=== PATIENT | female | born 1960 | race Caucasian/White ===

== ENCOUNTER 2016-11-05 14:53 | Emergency (ER) | payer BC ==
[2016-11-05 14:58] VITALS: TEMP 97.5
[2016-11-05] MEDS ORDERED: ORPHENADRINE 30 MG/ML 2 ML VIAL IVP STA (15:25)
--- NOTE | 2016-11-05 15:29 | ED ---
General Adult HPI - General Chief complaint: Arrhythmia/Palpitations Stated complaint: heart palpitations/stabbing back pain Time Seen by Provider: 11/05/16 15:19 Source: patient, RN notes reviewed Mode of arrival: ambulatory Limitations: no limitations - History of Present Illness Initial comments: Patient is a pleasant 56-year-old female presenting to the emergency department with sharp left back discomfort and palpitations. Patient states left back discomfort has been persistent since yesterday. Patient states it is sharp and increases with deep breaths. Patient rates the discomfort is 4/10. Patient questions if she slept wrong. Patient also has had some intermittent fluttering since yesterday. No symptoms at this time. No chest pain. No dyspnea. No leg pain or leg swelling. - Related Data Home Medications Medication Instructions Recorded Confirmed Fluticasone Propionate [Flovent 2 puff INHALATION RT-BID PRN 11/05/16 11/05/16 Hfa 110mcg] Ipratropium/Albuterol Sulfate 2 puff INHALATION RT-BID 11/05/16 11/05/16 [Combivent Respimat Inhaler] Multivitamins, Thera [Multivitamin 1 tab PO DAILY 11/05/16 11/05/16 (formulary)] metFORMIN HCL [Glucophage] 500 mg PO BID 11/05/16 11/05/16 Allergies Allergy/AdvReac Type Severity Reaction Status Date / Time amoxicillin Allergy Rash/Hives Verified 11/05/16 15:56 Review of Systems ROS Statement: Those systems with pertinent positive or pertinent negative responses have been documented in the HPI. ROS Other: All systems not noted in ROS Statement are negative. Constitutional: Denies: fever Eyes: Denies: eye pain ENT: Denies: ear pain Respiratory: Denies: cough Cardiovascular: Reports: palpitations. Denies: chest pain Endocrine: Denies: fatigue Gastrointestinal: Denies: abdominal pain Genitourinary: Denies: urgency Musculoskeletal: Reports: back pain Skin: Denies: rash Neurological: Denies: weakness Past Medical History Past Medical History: Diabetes Mellitus History of Any Multi-Drug Resistant Organisms: None Reported Past Surgical History: Section Past Psychological History: No Psychological Hx Reported Smoking Status: Never smoker Past Alcohol Use History: None Reported Past Drug Use History: None Reported General Exam Limitations: no limitations General appearance: alert, in no apparent distress Head exam: Present: atraumatic Eye exam: Present: normal appearance, PERRL ENT exam: Present: normal oropharynx Neck exam: Present: normal inspection Respiratory exam: Present: normal lung sounds bilaterally. Absent: chest wall tenderness Cardiovascular Exam: Present: regular rate, normal rhythm Expanded Peripheral pulses: 2+: Radial (R), Radial (L), Posterior Tibialis (R), Posterior Tibialis (L) GI/Abdominal exam: Present: soft. Absent: tenderness Extremities exam: Present: normal inspection. Absent: pedal edema, calf tenderness Back exam: Present: tenderness (LEft parathoracic muscle fullness and tenderness T7 through T9.) Neurological exam: Present: alert Psychiatric exam: Present: normal affect, normal mood Skin exam: Present: normal color Course Vital Signs 11/05/16 14:55 Temperature 97.5 F L Pulse Rate 105 H Respiratory 18 Rate Blood Pressure 143/81 O2 Sat by Pulse 96 Oximetry - Reevaluation(s) Reevaluation #1: 11/05/16 15:27 Patient does have occasional PVCs on the monitor that does correlate with patient's symptoms. EKG Findings - EKG Comments: EKG Findings:: Normal sinus rhythm 99. TX 140. QRS 94. QT 334. QTC 428. Normal axis. Normal QRS. Normal ST-T. Medical Decision Making - Medical Decision Making Patient reevaluated and resting comfortably in bed. Patient updated on results and need for follow-up. Patient still refuses medication and prescription. - Lab Data Result diagrams: 11/05/16 15:10 11/05/16 15:10 Lab Results 11/05/16 11/05/16 11/05/16 Range/Units 15:10 15:10 15:10 WBC 8.0 (3.8-10.6) k/uL RBC 5.24 (3.80-5.40) m/uL Hgb 14.1 (11.4-16.0) gm/dL Hct 42.3 (34.0-46.0) % MCV 80.8 (80.0-100.0) fL MCH 26.9 (25.0-35.0) pg MCHC 33.2 (31.0-37.0) g/dL RDW 13.7 (11.5-15.5) % Plt Count 264 (150-450) k/uL Neutrophils % 75 % Lymphocytes % 15 % Monocytes % 4 % Eosinophils % 3 % Basophils % 1 % Neutrophils # 6.0 (1.3-7.7) k/uL Lymphocytes # 1.2 (1.0-4.8) k/uL Monocytes # 0.3 (0-1.0) k/uL Eosinophils # 0.2 (0-0.7) k/uL Basophils # 0.1 (0-0.2) k/uL PT (9.0-12.0) sec INR (<1.2) APTT (22.0-30.0) sec D-Dimer (<0.60) mg/L FEU Sodium 140 (137-145) mmol/L Potassium 4.7 (3.5-5.1) mmol/L Chloride 106 (98-107) mmol/L Carbon Dioxide 24 (22-30) mmol/L Anion Gap 10 mmol/L BUN 13 (7-17) mg/dL Creatinine 0.60 (0.52-1.04) mg/dL Est GFR (MDRD) Af Amer >60 (>60 ml/min/1.73 sqM) Est GFR (MDRD) Non-Af >60 (>60 ml/min/1.73 sqM) Glucose 110 H (74-99) mg/dL Calcium 10.1 (8.4-10.2) mg/dL Magnesium 1.8 (1.6-2.3) mg/dL Total Bilirubin 0.7 (0.2-1.3) mg/dL AST 30 (14-36) U/L ALT 50 (9-52) U/L Alkaline Phosphatase 82 (38-126) U/L Total Creatine Kinase 83 (30-135) U/L CK-MB (CK-2) 1.0 (0.0-2.4) ng/mL CK-MB (CK-2) Rel Index 1.2 Troponin I <0.012 (0.000-0.034) ng/mL Total Protein 7.5 (6.3-8.2) g/dL Albumin 4.5 (3.5-5.0) g/dL TSH 1.740 (0.465-4.680) mIU/L Free T4 1.26 (0.78-2.19) ng/dL Free T3 pg/mL 3.7 (2.8-5.3) pg/ml 11/05/16 11/05/16 Range/Units 15:10 15:10 WBC (3.8-10.6) k/uL RBC (3.80-5.40) m/uL Hgb (11.4-16.0) gm/dL Hct (34.0-46.0) % MCV (80.0-100.0) fL MCH (25.0-35.0) pg MCHC (31.0-37.0) g/dL RDW (11.5-15.5) % Plt Count (150-450) k/uL Neutrophils % % Lymphocytes % % Monocytes % % Eosinophils % % Basophils % % Neutrophils # (1.3-7.7) k/uL Lymphocytes # (1.0-4.8) k/uL Monocytes # (0-1.0) k/uL Eosinophils # (0-0.7) k/uL Basophils # (0-0.2) k/uL PT 10.5 (9.0-12.0) sec INR 1.0 (<1.2) APTT 26.1 (22.0-30.0) sec D-Dimer 0.33 (<0.60) mg/L FEU Sodium (137-145) mmol/L Potassium (3.5-5.1) mmol/L Chloride (98-107) mmol/L Carbon Dioxide (22-30) mmol/L Anion Gap mmol/L BUN (7-17) mg/dL Creatinine (0.52-1.04) mg/dL Est GFR (MDRD) Af Amer (>60 ml/min/1.73 sqM) Est GFR (MDRD) Non-Af (>60 ml/min/1.73 sqM) Glucose (74-99) mg/dL Calcium (8.4-10.2) mg/dL Magnesium (1.6-2.3) mg/dL Total Bilirubin (0.2-1.3) mg/dL AST (14-36) U/L ALT (9-52) U/L Alkaline Phosphatase (38-126) U/L Total Creatine Kinase (30-135) U/L CK-MB (CK-2) (0.0-2.4) ng/mL CK-MB (CK-2) Rel Index Troponin I (0.000-0.034) ng/mL Total Protein (6.3-8.2) g/dL Albumin (3.5-5.0) g/dL TSH (0.465-4.680) mIU/L Free T4 (0.78-2.19) ng/dL Free T3 pg/mL (2.8-5.3) pg/ml - Radiology Data Radiology results: image reviewed (Chest x-ray shows no acute process) Disposition Clinical Impression: Palpitations, Thoracic back pain Disposition: HOME SELF-CARE Condition: Stable Instructions: Palpitations (ED), Thoracic Pain (ED) Additional Instructions: Please follow-up with primary care physician in the next day or 2 for recheck. Return for difficulty in breathing, chest pain, increased heart rate, worsening symptoms or other concerns. [id number]-lchrhas Tylenol or Motrin if needed for back discomfort. Referrals: Mychal Geronimo DO [Primary Care Provider] - 1-2 days Time of Disposition: 16:30
[2016-11-05 15:37] LABS: Basophils # (A) 0.1 k/uL (0-0.2); Basophils % (A) 1 %; CH 26.2; CHCM 32.6; Eosinophils # (A) 0.2 k/uL (0-0.7); Eosinophils % (A) 3 %; HCT 42.3 % (34.0-46.0); HDW 2.68; HGB 14.1 gm/dL (11.4-16.0); Luc # (Auto) 0.19; Luc % (Auto) 2; Lymphocytes # (A) 1.2 k/uL (1.0-4.8); Lymphocytes % (A) 15 %; MCH 26.9 pg (25.0-35.0); MCHC 33.2 g/dL (31.0-37.0); MCV 80.8 fL (80.0-100.0); Mean Platelet Volume 7.9; Monocytes # (A) 0.3 k/uL (0-1.0); Monocytes % (A) 4 %; Neutrophils % (A) 75 %; RBC 5.24 m/uL (3.80-5.40); RDW 13.7 % (11.5-15.5); WBC (Perox) 7.81
--- NOTE | 2016-11-05 15:43 | XR ---
EXAMINATION TYPE: XR chest 2V DATE OF EXAM: 11/05/2016 COMPARISON: NONE TECHNIQUE: PA and lateral views submitted. HISTORY: Chest pain FINDINGS: The lungs are clear and there is no pneumothorax, pleural effusion, or focal pneumonia. Postsurgica l change involving the upper quadrant noted. No overt failure. Degenerative change of the spine noted . IMPRESSION: 1. No acute process.
[2016-11-05 15:48] LABS: ALT 50 U/L (9-52); AST 30 U/L (14-36); Alkaline Phosphatase 82 U/L (38-126); Anion Gap 10 mmol/L; Blood Urea Nitrogen 13 mg/dL (7-17); Calcium 10.1 mg/dL (8.4-10.2); Carbon Dioxide 24 mmol/L (22-30); Chloride 106 mmol/L (98-107); Glucose 110 mg/dL (74-99); Magnesium 1.8 mg/dL (1.6-2.3); Non-African American GFR(MDRD) >60 (>60 ml/min/1.73 sqM); Potassium 4.7 mmol/L (3.5-5.1); Sodium 140 mmol/L (137-145); Total Bilirubin 0.7 mg/dL (0.2-1.3); Total Protein 7.5 g/dL (6.3-8.2)
[2016-11-05 15:51] LABS: Partial Thromboplastin Time 26.1 sec (22.0-30.0); Prothrombin Time 10.5 sec (9.0-12.0)
[2016-11-05 15:59] LABS: Creatine Kinase 83 U/L (30-135)
[2016-11-05 16:11] LABS: Troponin I <0.012 ng/mL (0.000-0.034)
[2016-11-05 16:32] VITALS: BP 135/68; PULSE 96; RESP 16
== END 2016-11-05 16:39 | disposition home or self-care (01) ==
LOC: EC 14:53
DX: M54.6 Pain in thoracic spine (principal); R00.2 Palpitations; E11.9 Type 2 diabetes mellitus without complications; Z79.84 Long term (current) use of oral hypoglycemic drugs; Z79.899 Other long term (current) drug therapy; Z88.0 Allergy status to penicillin; Z53.20 Procedure and treatment not carried out because of patient's decision for unspecified reasons
CPT/HCPCS: 36415; 71020; 80053; 82550; 82553; 83735; 84439; 84443; 84481; 84484; 85025; 85379; 85610; 85730; 93005; 99285

== ENCOUNTER → 2017-09-24 | Outpatient (CLI) | payer BC ==
[2017-09-24 12:47] LABS: Appearance,Urine Clear (Clear); Bilirubin,Urine Negative (Negative); Blood,Urine Negative (Negative); Color,Urine Yellow; Glucose,Urine (UA) Negative (Negative); Ketones,Urine Negative (Negative); Leukocyte Esterase,Urine Small (Negative); Mucus,Urine Rare /hpf; Nitrite,Urine Negative (Negative); Protein,Urine Negative (Negative); RBC,Urine <1 /hpf (0-5); Specific Gravity,Urine 1.008 (1.001-1.035); Squamous Epithelial Cell,Urine <1 /hpf (0-4); Urobilinogen,Urine <2.0 mg/dL (<2.0); WBC,Urine 3 /hpf (0-5)
[2017-09-24 12:54] LABS: HCT 40.6 % (34.0-46.0); HGB 13.3 gm/dL (11.4-16.0); MCH 25.9 pg (25.0-35.0); MCHC 32.7 g/dL (31.0-37.0); MCV 79.2 fL (80.0-100.0); Mean Platelet Volume 7.9; Platelet Count 244 k/uL (150-450); RBC 5.12 m/uL (3.80-5.40); RDW 13.7 % (11.5-15.5); WBC 6.5 k/uL (3.8-10.6)
[2017-09-24 13:04] LABS: Partial Thromboplastin Time 25.1 sec (22.0-30.0); Prothrombin Time 9.8 sec (9.0-12.0)
[2017-09-24 13:09] LABS: ALT 41 U/L (9-52); AST 28 U/L (14-36); Albumin 4.3 g/dL (3.5-5.0); Alkaline Phosphatase 72 U/L (38-126); Anion Gap 7 mmol/L; Blood Urea Nitrogen 13 mg/dL (7-17); Calcium 9.6 mg/dL (8.4-10.2); Carbon Dioxide 30 mmol/L (22-30); Chloride 104 mmol/L (98-107); Glucose 111 mg/dL (74-99); Potassium 4.6 mmol/L (3.5-5.1); Sodium 141 mmol/L (137-145); Total Bilirubin 0.6 mg/dL (0.2-1.3); Total Protein 7.2 g/dL (6.3-8.2)
== END | disposition home or self-care (01) ==
LOC: LABPAT 11:49
PROVIDERS: ATTEND Orthopaedic Surgery
DX: Z01.812 Encounter for preprocedural laboratory examination (principal)
CPT/HCPCS: 36415; 80053; 81001; 85027; 85610; 85730; 86850; 86900; 86901; 87070

== ENCOUNTER 2017-10-05 09:07 | Inpatient (IN) | payer BC ==
[2017-09-28 12:08] VITALS: BMI 34.7
[~2017-10-05 09:07] MED LIST: ACETAMINOPHEN TAB 500 MG TAB PO ONE; DEXAMETHASONE SOD PHOSPHATE 10 MG/ML 1 ML VIAL IV ONE; LIDOCAINE 1% 20 ML VIAL (10MG/ML) FOR IV START INTRADERMA PRN; MELOXICAM 7.5 MG TAB PO ONE; MIDAZOLAM 2 MG/2 ML VIAL IV PRN; ONDANSETRON 4 MG/2 ML VIAL IVP ONE; ROPIVACAINE 246.25 MG, EPINEPHrine 0.5 MG, KETOROLAC 30 MG, cloNIDine HCL/PF 80 MCG, WA... MISCELLANE ONE; TRANEXAMIC ACID 1,000 MG in SODIUM CHLORIDE 0.9% 50 ML IVPB ONE; ceFAZolin IN SWFI 2 GM/20 ML SYRINGE IVP ONE
[2017-10-05] MEDS ORDERED: hydrOXYzine PAMOATE 25 MG CAP PO PRN (11:56)
[2017-10-05] MEDS ORDERED: HYDROmorphone 1 MG/ML 1 ML SYRINGE IVP PRN ×3 (11:56)
[2017-10-05] MEDS ORDERED: MAGNESIUM HYDROXIDE 2,400 MG/10 ML CUP PO PRN (11:56)
[2017-10-05] MEDS ORDERED: NALOXONE 0.4 MG/ML 1 ML VIAL IV PRN (11:56)
[2017-10-05] MEDS ORDERED: DIAZEPAM 5 MG TAB PO PRN ×2 (11:56)
[2017-10-05] MEDS ORDERED: HYDROcodone/APAP 5-325MG 1 EACH TAB PO PRN (11:56)
[2017-10-05] MEDS ORDERED: LACTATED RINGERS 1,000 ML IV ONE ×2 (12:00→13:30)
[2017-10-05] MEDS: ONDANSETRON 4 MG/2 ML VIAL IVP PRN ×2 (12:06→16:06)
[2017-10-05 12:17] LABS: Glucose,Whole Blood 126 mg/dL (75-99)
[2017-10-05] MEDS ORDERED: CLINDAMYCIN 1,800 MG in SODIUM CHLORIDE 0.9% IRRIGATIO 3,000 ML IRRIGATION ONE (12:58)
--- NOTE | 2017-10-05 13:52 | P.OP ---
Date of Procedure: 10/05/17 Preoperative Diagnosis: Severe osteoarthritis left hip Postoperative Diagnosis: Severe Osteoarthritis the left hip Procedure(s) Performed: Left total hip arthroplasty with a direct anterior approach Implants: Foley and nephew Polarstem size 3 standard Foley & Nephew R3, 3 hole acetabular shell, 48 mm Foley & Nephew reflection 6.5 mm cancellus screw, 20 mm 2 Foley & Nephew R3, XLPE 20 acetabular liner Foley & Nephew Oxinium femoral head 32 m, +0 All components were press-fit. The articulation is Oxinium on polyethylene. Anesthesia: GETA, spinal Surgeon: Royce Mar Traffic I Manager #1: Maricruz Richards Estimated Blood Loss (ml): 350 (125 mL returned with Cell Saver) Pathology: other (Femoral head) Condition: stable Disposition: PACU Indications for Procedure: After failure of conservative treatment we discussed the surgical and nonsurgical treatment options at length. Patient wishes to proceed with a total hip arthroplasty with a direct anterior approach. Complications specific to this procedure were discussed at length, including but not limited to infection, leg length discrepancy, dislocation, and nerve injury. Patient is aware of all these complications and informed consent was obtained Operative Findings: The operative findings are consistent with severe osteoarthritis of the left hip Description of Procedure: Patient was seen and evaluated in the preoperative area, consent was reviewed, and the surgical site was marked with a skin marker. Patient was then brought to the operating room and given prophylactic antibiotics intravenously. 1 g of Tranexamic acid was also given. A spinal anesthetic was administered by the anesthesia department. The patient was then placed on the [place] table with the bony prominences well-padded. The hip area was then prepped and draped in usual sterile fashion. The spinal did not seem to provide adequate regional anesthesia, so a general anesthetic was given. A universal timeout was then performed, which confirmed the patient's name, surgical site, ALLERGIES, and procedure being performed. Next the incision site was located at 1 cm distal and 1 cm lateral to the anterior superior iliac spine. The skin and subcutaneous tissues were sharply incised. Incision was carefully dissected down to the fascia overlying the tensor fascia kurtis muscle. This fascia was then incised in line with the incision. Next, using blunt finger dissection, the tensor fascia kurtis muscle was dissected off its investing fascia. The muscle was then carefully retracted laterally with a cobra retractor over the lateral neck of the femur. Next, the circumflex vessels were identified and cauterized using the AquaMantis device. The anterior hip capsule was then exposed. The capsule was then opened and an inverted T fashion. Cobra retractors were then placed intracapsularly. The proximal femur was then visualized. The femoral neck was then osteotomized appropriate level above the lesser trochanter. Small amount of traction was placed with the [place] table. A small wedge of bone was then removed from the remaining femoral head. Next, using a corkscrew femoral head was easily removed from the acetabulum. On gross visual inspection, the femoral head had complete loss of articular cartilage in multiple periarticular osteophytes. Attention was then turned to the acetabulum. the acetabulum was exposed and any remaining labrum was excised. Sequential reaming of the acetabulum was performed using fluoroscopic guidance. When the appropriate size was reached, a trial was then placed. The position and fit of the trial was checked with fluoroscopy. The trial was then removed. Then, using fluoroscopic guidance, the final implant was impacted at 20 of anteversion and 40 of abduction, and fully seated in the acetabulum. 2 screws were then placed in the acetabulum. Again fluoroscopy was used to check position of the screws. Next, the liner was then impacted, with a 20 elevated liner located in the anterior superior quadrant. Component locking was confirmed. Attention was then directed to the femur. With the aid of the [place] table, the femur was externally rotated to approximately 130, extended, and abducted under the opposite leg. A side hook was then placed under the proximal femur, and the side hook elevator was used to elevate the proximal femur. Retractors were then placed. A capsular release was performed, as well as a release of the conjoined tendon, which afforded excellent visualization of the proximal femur. Next, a box osteotome was used to lateralize the proximal femur. A block hand was then used to locate the femoral canal. Sequential broaching was then performed with appropriate size which afforded excellent fixation in the proximal femur. A trial was then placed with appropriate head and neck, and the hip was gently reduced with the aid of the [place] table. Fluoroscopy was then used to check position of the components, as well as to ensure equal leg lengths. The hip was then gently dislocated and the trials were then removed. Final implants were then impacted and the hip was again reduced. Final fluoroscopic x-rays confirmed that the components were in anatomic position, as well as equal leg lengths. The hip was also taken through range of motion, and found to be stable. The hip was then copiously irrigated with antibiotic solution with pulsatile lavage. The hip was then irrigated with Irrisept solution. The soft tissues were then injected with a ropivacaine solution, which consisted of 246.25 mg of ropivacaine, 0.5 mg of epinephrine, 30 mg of Toradol, 80 g of clonidine, and 48.45 mL of sterile water, for a total of 100 mL of fluid injected. A second dose of 1 g of Tranexamic acid was also given. the fascia was then closed with 2-0 strata fix suture. The subcutaneous tissue was closed with 3-0 Vicryl. The subcuticular tissue was closed with 3-0 strata fix suture. The skin was then closed with Dermabond glue and a sterile silver dressing. The patient was then transferred to the recovery room in stable condition. The preschool teacher's assistant MARIA TERESA Varela was required due to the complexity of surgery, and the need for skilled preschool teacher's assistant for positioning, draping, exposure, retraction, and closure of the wound.
--- NOTE | 2017-10-05 14:25 | XR ---
EXAMINATION TYPE: XR Hip Limited LT DATE OF EXAM: 10/05/2017 COMPARISON: NONE HISTORY: Postop TECHNIQUE: One view submitted. FINDINGS: There is a prosthetic hip in near anatomic alignment. There is soft tissue edema and emphysema. IMPRESSION: 1. Postoperative change. Appears in near-anatomic alignment.
--- NOTE | 2017-10-05 14:26 | FL ---
EXAMINATION TYPE: FL guidance operating room DATE OF EXAM: 10/05/2017 HISTORY: Flouroscopy time 50 seconds of fluoroscopy provided. IMPRESSION: 1. Fluoroscopy time.
[2017-10-05] MEDS: fentaNYL (PF) 50 MCG/ML 2 ML AMP IV PRN ×2 (14:44→14:48)
[2017-10-05 15:07] LABS: Glucose,Whole Blood 211 mg/dL (75-99)
[2017-10-05] MEDS ORDERED: INSULIN ASPART 100 UNIT/ML 1 ML 10 ML VIAL SQ ONE (15:09)
[2017-10-05] MEDS: LACTATED RINGERS 1,000 ML IV SCH ×2 (15:58→15:59)
[2017-10-05] MEDS: SODIUM CHLORIDE 0.9% 1,000 ML IV SCH ×2 (15:59→16:03)
[2017-10-05] MEDS ORDERED: ceFAZolin IN SWFI 2 GM/20 ML SYRINGE IVP SCH (16:00)
[2017-10-05] MEDS: CLINDAMYCIN 900 MG in DEXTROSE 5% IN WATER 50 ML IVPB SCH ×4 (16:03→23:39)
[2017-10-05] MEDS ORDERED: INSULIN ASPART 100 UNIT/ML 1 ML 10 ML VIAL SQ SCH (17:30)
--- NOTE | 2017-10-05 17:40 | P.CONS ---
History of Present Illness - Reason for Consult Recommendations regarding diabetic medications. - History of Present Illness [id number] female sepsis underwent the left hip arthroplasty. Patient is still coming out of anesthesia unable to get much of the history from the patient patient denied any fever chills nausea vomiting did not pass gas did not move her bowel yet. Review of Systems As mentioned in the interval history Past Medical History Past Medical History: Diabetes Mellitus History of Any Multi-Drug Resistant Organisms: None Reported Past Surgical History: Section Past Anesthesia/Blood Transfusion Reactions: No Reported Reaction Past Psychological History: No Psychological Hx Reported Smoking Status: Never smoker Past Alcohol Use History: None Reported Past Drug Use History: None Reported - Past Family History Mother Family Medical History: No Reported History Medications and Allergies Home Medications Medication Instructions Recorded Confirmed Type Fluticasone Propionate [Flovent 2 puff INHALATION RT-BID PRN 11/05/16 10/05/17 History Hfa 110mcg] Ipratropium/Albuterol Sulfate 2 puff INHALATION RT-BID 11/05/16 10/05/17 History [Combivent Respimat Inhaler] Multivitamins, Thera [Multivitamin 1 tab PO DAILY 11/05/16 10/05/17 History (formulary)] metFORMIN HCL [Glucophage] 500 mg PO BID 11/05/16 10/05/17 History Allergies Allergy/AdvReac Type Severity Reaction Status Date / Time amoxicillin Allergy Rash/Hives Verified 10/05/17 12:51 cefazolin [From Kefzol] Allergy Dyspnea Verified 10/05/17 15:11 Physical Exam Vitals: Vital Signs Temp Pulse Pulse Resp BP BP Pulse Ox 10/05/17 15:16 104 H 16 138/63 95 10/05/17 15:00 101 H 16 136/60 100 10/05/17 14:45 99 16 150/64 100 10/05/17 14:25 105 H 16 155/69 100 10/05/17 14:10 97.4 F L 104 H 16 154/68 96 10/05/17 12:01 97.7 F 105 H 18 153/80 98 Intake and Output 10/05/17 10/05/17 10/05/17 06:59 14:59 22:59 Intake Total 1301 150 Output Total 350 Balance 951 150 Intake: IV 1301 150 Output: Estimated Blood Loss 350 Other: Weight 86.183 kg PHYSICAL EXAMINATION: GENERAL: The patient is drowsy and coming of anesthesia, not in any acute distress. Well developed, well nourished. HEENT: Pupils are round and equally reacting to light. EOMI. No scleral icterus. No conjunctival pallor. Normocephalic, atraumatic. No pharyngeal erythema. No thyromegaly. CARDIOVASCULAR: S1 and S2 present. No murmurs, rubs, or gallops. PULMONARY: Chest is clear to auscultation, no wheezing or crackles. ABDOMEN: Soft, nontender, nondistended, normoactive bowel sounds. No palpable organomegaly. MUSCULOSKELETAL: Deferred to orthopedic surgery EXTREMITIES: No cyanosis, clubbing, or pedal edema. NEUROLOGICAL: Gross neurological examination did not reveal any focal deficits. SKIN: No rashes. Results Labs: Abnormal Lab Results - Last 24 Hours (Table) 10/05/17 10/05/17 Range/Units 12:03 15:01 POC Glucose (mg/dL) 126 H 211 H (75-99) mg/dL Assessment and Plan Plan: -Type 2 diabetes mellitus: Patient only uses metformin which will be held patient will be started on sliding scale insulin and Accu-Cheks 3 times a day before meals. -Left hip arthroplasty: Due to prophylaxis and pain management as per primary service -Osteoarthritis
[2017-10-05 17:56] LABS: Glucose,Whole Blood 225 mg/dL (75-99)
[2017-10-05] MEDS: INSULIN ASPART 100 UNIT/ML 1 ML 10 ML VIAL SQ SCH ×2 (17:59→20:04)
[2017-10-05 19:58] LABS: Glucose,Whole Blood 252 mg/dL (75-99)
[2017-10-05] MEDS: ASPIRIN 325 MG TAB PO SCH (20:04)
[2017-10-05] MEDS ORDERED: SENNOSIDES-DOCUSATE SODIUM 1 EACH TAB PO SCH (21:00)
[2017-10-05] MEDS: HYDROcodone/APAP 5-325MG 1 EACH TAB PO PRN (21:31)
[2017-10-06 02:33] VITALS: PULSE 92
[2017-10-06 06:46] LABS: Glucose,Whole Blood 174 mg/dL (75-99)
[2017-10-06 07:27] LABS: Basophils % (A) 0 %; Eosinophils % (A) 0 %; HGB 10.7 gm/dL (11.4-16.0); Lymphocytes % (A) 9 %; MCH 25.4 pg (25.0-35.0); MCHC 31.6 g/dL (31.0-37.0); MCV 80.5 fL (80.0-100.0); Monocytes # (A) 0.9 k/uL (0-1.0); Monocytes % (A) 9 %; Neutrophils # (A) 8.2 k/uL (1.3-7.7); Neutrophils % (A) 80 %; Platelet Count 226 k/uL (150-450); RBC 4.22 m/uL (3.80-5.40); RDW 13.8 % (11.5-15.5); WBC 10.3 k/uL (3.8-10.6)
[2017-10-06] MEDS: HYDROcodone/APAP 5-325MG 1 EACH TAB PO PRN ×2 (07:39→12:43)
[2017-10-06] MEDS: INSULIN ASPART 100 UNIT/ML 1 ML 10 ML VIAL SQ SCH (08:05)
[2017-10-06] MEDS ORDERED: metFORMIN 500 MG TAB PO SCH ×2 (09:00→17:30)
[2017-10-06] MEDS ORDERED: MELOXICAM 7.5 MG TAB PO SCH (09:00)
--- NOTE | 2017-10-06 09:01 | P.DS ---
Providers Date of admission: 10/05/17 11:00 Expected date of discharge: 10/06/17 Attending physician: Royce Mar Consults: 10/05/17 11:56 Consult Physician Routine Consulting Provider: Washington Valdez Consult Reason/Comments: medical management Do you want consulting provider notified?: Yes Primary care physician: Surjit Henning - Discharge Diagnosis(es) (1) Primary osteoarthritis of left hip Current Visit: Yes Status: Acute (2) Status post total hip replacement, left Current Visit: Yes Status: Acute Hospital Course: This is a 57-year-old female with known history of degenerative arthritis of the left hip. The patient presents for evaluation. After discussion and consideration patient elects to proceed with total hip arthroplasty. The patient is seen preoperatively by Dr. Mar and medically cleared for surgery by their primary care physician. Patient is admitted to [facility] on 10/05/2017 for total hip arthroplasty. The procedures performed without complication or sequelae. The patient is doing well postoperatively. Labs and vital signs are stable on day of discharge. On day of discharge patient's hip incision is healing well. There is minimal erythema. There is no drainage noted at this time. There is minimal soft tissue swelling to the hip and thigh. Patient has full foot and ankle motion without difficulty or pain. Neurovascular status to the left lower extremity is intact. Patient is discharged home in good condition. Please see med rec for accurate list of home medications. Plan - Discharge Summary Discharge Rx Participant: Yes New Discharge Prescriptions: New Aspirin 325 mg PO BID #60 tab HYDROcodone/APAP 5-325MG [[place] 5-325] 1 - 2 tab PO Q4-6H PRN #84 tab PRN Reason: Pain Sennosides [Senokot] 1 tab PO BID #60 tablet No Action metFORMIN HCL [Glucophage] 500 mg PO BID Multivitamins, Thera [Multivitamin (formulary)] 1 tab PO DAILY Ipratropium/Albuterol Sulfate [Combivent Respimat Inhaler] 2 puff INHALATION RT-BID Fluticasone Propionate [Flovent Hfa 110mcg] 2 puff INHALATION RT-BID PRN PRN Reason: Wheezing Discharge Medication List Fluticasone Propionate [Flovent Hfa 110mcg] 2 puff INHALATION RT-BID PRN [History] Ipratropium/Albuterol Sulfate [Combivent Respimat Inhaler] 2 puff INHALATION RT- BID 11/05/16 [History] Multivitamins, Thera [Multivitamin (formulary)] 1 tab PO DAILY 11/05/16 [History ] metFORMIN HCL [Glucophage] 500 mg PO BID 11/05/16 [History] Aspirin 325 mg PO BID #60 tab 10/06/17 [Rx] HYDROcodone/APAP 5-325MG [[place] 5-325] 1 - 2 tab PO Q4-6H PRN #84 tab 10/06/17 [ Rx] Sennosides [Senokot] 1 tab PO BID #60 tablet 10/06/17 [Rx] Follow up Appointment(s)/Referral(s): Royce Mar DO [Doctor of Osteopathic Medicine] - 2 Weeks Activity/Diet/Wound Care/Special Instructions: Weightbearing as tolerated with walker Leave dressing intact. Dressing may be removed by home care nurse in 10 days. May shower with dressing on. Follow-up with [facility] in 2 weeks, please call with any questions or concerns [phone] Discharge Disposition: HOME WITH HOME HEALTH SERVICES
[2017-10-06] MEDS: ASPIRIN 325 MG TAB PO SCH (09:03)
[2017-10-06 10:50] VITALS: BP 110/67; RESP 16; TEMP 98.7
--- NOTE | 2017-10-06 13:40 | P.PN ---
Subjective Patient is clinically doing well is being discharged today patient can resume her metformin no further recommendations from medicine. Objective - Vital Signs Vital signs: Vital Signs Temp 98.7 F 10/06/17 07:39 Pulse 92 10/06/17 07:39 Resp 16 10/06/17 07:39 BP 110/67 10/06/17 07:39 Pulse Ox 99 10/06/17 07:39 Intake & Output 10/05/17 10/06/17 10/06/17 18:59 06:59 18:59 Intake Total 1451 520 Output Total 350 800 Balance 1101 -280 Weight 86.183 kg Intake: IV 1451 Intake, IV Titration 520 Amount Sodium Chloride 0.9% 1, 520 000 ml @ 65 mls/hr IV . [id number] [facility] Rx#:[id number] Output: Urine 800 Estimated Blood Loss 350 Other: # Voids 4 - Exam PHYSICAL EXAMINATION: GENERAL: The patient is drowsy and coming of anesthesia, not in any acute distress. Well developed, well nourished. HEENT: Pupils are round and equally reacting to light. EOMI. No scleral icterus. No conjunctival pallor. Normocephalic, atraumatic. No pharyngeal erythema. No thyromegaly. CARDIOVASCULAR: S1 and S2 present. No murmurs, rubs, or gallops. PULMONARY: Chest is clear to auscultation, no wheezing or crackles. ABDOMEN: Soft, nontender, nondistended, normoactive bowel sounds. No palpable organomegaly. MUSCULOSKELETAL: Deferred to orthopedic surgery EXTREMITIES: No cyanosis, clubbing, or pedal edema. NEUROLOGICAL: Gross neurological examination did not reveal any focal deficits. SKIN: No rashes. - Labs CBC & Chem 7: 10/06/17 06:47 Labs: Abnormal Lab Results - Last 24 Hours (Table) 10/05/17 10/05/17 10/05/17 Range/Units 15:01 17:54 19:57 Hgb (11.4-16.0) gm/dL Neutrophils # (1.3-7.7) k/uL POC Glucose (mg/dL) 211 H 225 H 252 H (75-99) mg/dL 10/06/17 10/06/17 Range/Units 06:44 06:47 Hgb 10.7 L (11.4-16.0) gm/dL Neutrophils # 8.2 H (1.3-7.7) k/uL POC Glucose (mg/dL) 174 H (75-99) mg/dL Assessment and Plan Plan: -Type 2 diabetes mellitus: Patient can be resumed on metformin upon discharge -Left hip arthroplasty: Due to prophylaxis and pain management as per primary service -Osteoarthritis
[2017-10-06 16:39] LABS: Glucose,Whole Blood 172 mg/dL (75-99)
== END 2017-10-06 14:28 | disposition home health service (06) | DRG 470 ==
LOC: 2ORMAIN 11:00 → 3SUR 14:02
PROVIDERS: ADMIT Orthopaedic Surgery; ATTEND Orthopaedic Surgery
PROC: 0SRB06A Replacement of Left Hip Joint with Oxidized Zirconium on Polyethylene Synthetic Substitute, Uncemented, Open Approach (ICD-10-PCS; principal; 2017-10-05 12:30)
DX: M16.12 Unilateral primary osteoarthritis, left hip (principal); E11.9 Type 2 diabetes mellitus without complications; Z79.84 Long term (current) use of oral hypoglycemic drugs; Z88.1 Allergy status to other antibiotic agents; Z88.0 Allergy status to penicillin
CPT/HCPCS: 73501; 85025; 86850; 86891; 86900; 86901; 88300

== ENCOUNTER 2020-10-11 16:25 | Emergency (ER) | payer BC, OTHER ==
[2020-10-11 16:32] VITALS: TEMP 98.7
--- NOTE | 2020-10-11 17:12 | ED ---
Arrhythmia/Palpitations HPI - General Chief Complaint: Arrhythmia/Palpitations Stated Complaint: Racing heart Time Seen by Provider: 10/11/20 17:07 Source: patient Mode of arrival: ambulatory Limitations: no limitations - History of Present Illness Initial Comments: Hollie is a 60-year-old female who presents to the emergency department today via private vehicle for evaluation of heart palpitations. Patient reports that starting yesterday evening she had a feeling like her heart was racing. This is worse when going to bed last night. No worsening shortness of breath no chest pain. Patient has had a mild cough and mild shortness of breath for the past few days she tested positive for COVID-19 days ago. - Related Data Home Medications Medication Instructions Recorded Confirmed Multivitamins, Thera [Multivitamin 1 tab PO DAILY 11/05/16 10/11/20 (formulary)] Biotin Ex Strength 1 tab PO DAILY 10/11/20 10/11/20 Cholecalciferol (Vitamin D3) 125 mcg PO DAILY 10/11/20 10/11/20 [Vitamin D3 (125 MCG = 5,000 IU)] Cider Vinegar [Apple Cider Vinegar] 300 mg PO DAILY 10/11/20 10/11/20 [place] 1 tab PO DAILY 10/11/20 10/11/20 Dztnnllqv-Jjqzqibxv-Tpeftenuqo 1 tab PO HS 10/11/20 10/11/20 Super Vitamin C 1 tab PO DAILY 10/11/20 10/11/20 Ultra [place] 3 1 tab PO DAILY 10/11/20 10/11/20 Zinc 50 mg PO DAILY 10/11/20 10/11/20 Allergies Allergy/AdvReac Type Severity Reaction Status Date / Time amoxicillin Allergy Rash/Hives Verified 10/11/20 17:37 cefazolin [From Kefzol] Allergy Dyspnea Verified 10/11/20 17:37 Review of Systems ROS Statement: Those systems with pertinent positive or pertinent negative responses have been documented in the HPI. ROS Other: All systems not noted in ROS Statement are negative. Past Medical History Past Medical History: Diabetes Mellitus History of Any Multi-Drug Resistant Organisms: None Reported Past Surgical History: Section Past Anesthesia/Blood Transfusion Reactions: No Reported Reaction Past Psychological History: No Psychological Hx Reported Smoking Status: Never smoker Past Alcohol Use History: None Reported Past Drug Use History: None Reported - Past Family History Mother Family Medical History: No Reported History General Exam - General Exam Comments Initial Comments: Physical Exam GENERAL: Patient is well-developed and well-nourished. Patient is nontoxic and well- hydrated and is in no distress. HENT: Normocephalic, Atraumatic. EYES: PERRL, EOMI PULMONARY: Unlabored respirations. No audible rales rhonchi or wheezing was noted. CARDIOVASCULAR: There is a regular rate and rhythm without any murmurs gallops or rubs. ABDOMEN: Soft and nontender with normal bowel sounds. SKIN: Skin is clear with no lesions or rashes and otherwise unremarkable. : Deferred NEUROLOGIC: Patient is alert and oriented x3. Moving all extremities spontaneously MUSCULOSKELETAL: Normal extremities with adequate strength and full range of motion. No lower extremity swelling or edema. No calf tenderness. PSYCHIATRIC: Normal psychiatric evaluation. Limitations: no limitations Course Vital Signs 10/11/20 10/11/20 10/11/20 16:30 17:30 18:00 Temperature 98.7 F Pulse Rate 99 100 93 Respiratory 20 18 18 Rate Blood Pressure 143/89 144/88 136/86 O2 Sat by Pulse 96 94 L 94 L Oximetry 10/11/20 10/11/20 18:30 19:00 Temperature Pulse Rate 93 90 Respiratory 18 18 Rate Blood Pressure 139/80 139/80 O2 Sat by Pulse 95 96 Oximetry EKG Findings - EKG Comments: EKG Findings:: EKG was obtained due to complaint of palpitations, EKG was obtained at 1642 rate is 98 rhythm is sinus normal axis, normal intervals, VT 140, QRS 90, QTC 426 there are no acute ST elevations or depressions there is no evidence of ischemia or infarction. Medical Decision Making - Medical Decision Making the patient was seen and evaluated, history is obtained from the patient, 6-year-old female with COVID-19 presenting with palpitations. EKG was nonischemic labs were as to be expected with COVID-19 she does haveLeukopenia Computed tomography scan of the chest was obtained to evaluate for any possible PE given the tachycardia and history of COVID-19, PE study showed no signs of no significant interstitial changes. Patient has no hypoxia at this time she is stable for discharge home. Telemetry monitoring from ER stay was reviewed patient did have occasional PVCs, no arrhythmias - Lab Data Result diagrams: 10/11/20 17:16 10/11/20 17:16 Lab Results 10/11/20 10/11/20 10/11/20 Range/Units 17:16 17:16 17:16 WBC 3.0 L (3.8-10.6) k/uL RBC 5.58 H (3.80-5.40) m/uL Hgb 15.1 (11.4-16.0) gm/dL Hct 46.3 H (34.0-46.0) % MCV 82.9 (80.0-100.0) fL MCH 27.1 (25.0-35.0) pg MCHC 32.6 (31.0-37.0) g/dL RDW 14.2 (11.5-15.5) % Plt Count 139 L (150-450) k/uL MPV 8.9 Neutrophils % 67 % Lymphocytes % 20 % Monocytes % 9 % Eosinophils % 1 % Basophils % 1 % Neutrophils # 2.0 (1.3-7.7) k/uL Lymphocytes # 0.6 L (1.0-4.8) k/uL Monocytes # 0.3 (0-1.0) k/uL Eosinophils # 0.0 (0-0.7) k/uL Basophils # 0.0 (0-0.2) k/uL PT 10.2 (9.0-12.0) sec INR 0.9 (<1.2) APTT 23.2 (22.0-30.0) sec Sodium 135 L (137-145) mmol/L Potassium 4.1 (3.5-5.1) mmol/L Chloride 103 (98-107) mmol/L Carbon Dioxide 23 (22-30) mmol/L Anion Gap 9 mmol/L BUN 12 (7-17) mg/dL Creatinine 0.51 L (0.52-1.04) mg/dL Est GFR (CKD-EPI)AfAm >90 (>60 ml/min/1.73 sqM) Est GFR (CKD-EPI)NonAf >90 (>60 ml/min/1.73 sqM) Glucose 206 H (74-99) mg/dL Calcium 9.0 (8.4-10.2) mg/dL Magnesium 2.1 (1.6-2.3) mg/dL Total Bilirubin 0.7 (0.2-1.3) mg/dL AST 73 H (14-36) U/L ALT 102 H (4-34) U/L Alkaline Phosphatase 77 (38-126) U/L Creatine Kinase 77 (30-135) U/L Troponin I (0.000-0.034) ng/mL Total Protein 6.7 (6.3-8.2) g/dL Albumin 4.0 (3.5-5.0) g/dL TSH 0.197 L (0.465-4.680) mIU/L 10/11/20 Range/Units 17:16 WBC (3.8-10.6) k/uL RBC (3.80-5.40) m/uL Hgb (11.4-16.0) gm/dL Hct (34.0-46.0) % MCV (80.0-100.0) fL MCH (25.0-35.0) pg MCHC (31.0-37.0) g/dL RDW (11.5-15.5) % Plt Count (150-450) k/uL MPV Neutrophils % % Lymphocytes % % Monocytes % % Eosinophils % % Basophils % % Neutrophils # (1.3-7.7) k/uL Lymphocytes # (1.0-4.8) k/uL Monocytes # (0-1.0) k/uL Eosinophils # (0-0.7) k/uL Basophils # (0-0.2) k/uL PT (9.0-12.0) sec INR (<1.2) APTT (22.0-30.0) sec Sodium (137-145) mmol/L Potassium (3.5-5.1) mmol/L Chloride (98-107) mmol/L Carbon Dioxide (22-30) mmol/L Anion Gap mmol/L BUN (7-17) mg/dL Creatinine (0.52-1.04) mg/dL Est GFR (CKD-EPI)AfAm (>60 ml/min/1.73 sqM) Est GFR (CKD-EPI)NonAf (>60 ml/min/1.73 sqM) Glucose (74-99) mg/dL Calcium (8.4-10.2) mg/dL Magnesium (1.6-2.3) mg/dL Total Bilirubin (0.2-1.3) mg/dL AST (14-36) U/L ALT (4-34) U/L Alkaline Phosphatase (38-126) U/L Creatine Kinase (30-135) U/L Troponin I <0.012 (0.000-0.034) ng/mL Total Protein (6.3-8.2) g/dL Albumin (3.5-5.0) g/dL TSH (0.465-4.680) mIU/L Disposition Clinical Impression: Palpitations Disposition: HOME SELF-CARE Condition: Stable Instructions (If sedation given, give patient instructions): Heart Palpitations (ED) Is patient prescribed a controlled substance at d/c from ED?: No Referrals: Surjit Henning MD [Primary Care Provider] - 1-2 days
[2020-10-11 17:27] LABS: Basophils % (A) 1 %; Eosinophils % (A) 1 %; HCT 46.3 % (34.0-46.0); HGB 15.1 gm/dL (11.4-16.0); Lymphocytes # (A) 0.6 k/uL (1.0-4.8); Lymphocytes % (A) 20 %; MCH 27.1 pg (25.0-35.0); MCHC 32.6 g/dL (31.0-37.0); MCV 82.9 fL (80.0-100.0); Mean Platelet Volume 8.9; Monocytes # (A) 0.3 k/uL (0-1.0); Monocytes % (A) 9 %; Neutrophils % (A) 67 %; Platelet Count 139 k/uL (150-450); RBC 5.58 m/uL (3.80-5.40); RDW 14.2 % (11.5-15.5)
[2020-10-11 17:35] VITALS: RESP 18
[2020-10-11 17:36] LABS: ALT 102 U/L (4-34); AST 73 U/L (14-36); African American GFR (CKD) >90 (>60 ml/min/1.73 sqM); Alkaline Phosphatase 77 U/L (38-126); Anion Gap 9 mmol/L; Blood Urea Nitrogen 12 mg/dL (7-17); Carbon Dioxide 23 mmol/L (22-30); Chloride 103 mmol/L (98-107); Creatine Kinase 77 U/L (30-135); Glucose 206 mg/dL (74-99); INR 0.9 (<1.2); Magnesium 2.1 mg/dL (1.6-2.3); Non-African American GFR(CKD) >90 (>60 ml/min/1.73 sqM); Partial Thromboplastin Time 23.2 sec (22.0-30.0); Potassium 4.1 mmol/L (3.5-5.1); Prothrombin Time 10.2 sec (9.0-12.0); Sodium 135 mmol/L (137-145); Total Bilirubin 0.7 mg/dL (0.2-1.3); Total Protein 6.7 g/dL (6.3-8.2)
--- NOTE | 2020-10-11 17:47 | XR ---
EXAMINATION TYPE: XR chest 1V portable DATE OF EXAM: 10/11/2020 COMPARISON: 11/05/2016 HISTORY: Dysrhythmia TECHNIQUE: Single view FINDINGS: There is no heart failure nor confluent pneumonic infiltrate. Costophrenic angles are clear . There are chest leads. Bony thorax is intact. IMPRESSION: No active cardiopulmonary disease. Normal heart. No change.
[2020-10-11 18:43] VITALS: BP 139/80
--- NOTE | 2020-10-11 19:01 | CT ---
EXAMINATION TYPE: CT chest angio for PE DATE OF EXAM: 10/11/2020 COMPARISON: None HISTORY: Chest discomfort and shortness of breath. CT DLP: 406.8 mGycm Automated exposure control for dose reduction was used. CONTRAST: Performed with IV Contrast, patient injected with 100 mL of Isovue 370. Heart and mediastinum are normal. There is no mediastinal adenopathy. There are no hilar masses. Hear t size is normal. There is no pericardial effusion. There is no pleural effusion. There is some fatty infiltration of the liver. Upper abdominal soft tissues are intact. Thoracic aorta is intact. There is no aneurysm or dissection. There is normal contrast opacification of the pulmonary arteries. There are no filling defects. The lungs are clear of infiltrate. There is no evidence of a pulmonary mass. Bony thorax is intact. T here is mild spurring of the endplates. Sternum is intact. IMPRESSION: No evidence of pulmonary embolism. Fatty infiltration of the liver.
[2020-10-11 19:04] VITALS: PULSE 90
== END 2020-10-11 19:30 | disposition home or self-care (01) ==
LOC: EC 16:25
DX: R00.2 Palpitations (principal); D72.819 Decreased white blood cell count, unspecified; E11.9 Type 2 diabetes mellitus without complications; Z88.1 Allergy status to other antibiotic agents; Z86.16 Personal history of COVID-19; Z88.0 Allergy status to penicillin
CPT/HCPCS: 36415; 93005; 80053; 82550; 83735; 84443; 84484; 85025; 85610; 85730; 71045; 71275; 99285; Q9967

== ENCOUNTER 2021-04-07 08:35 | Observation (INO) | payer BC ==
--- NOTE | 2021-04-07 09:06 | ED ---
General Adult HPI - General Chief complaint: Arrhythmia/Palpitations Stated complaint: Heart Palpitations Time Seen by Provider: 04/07/21 08:38 Source: patient Mode of arrival: ambulatory Limitations: no limitations - History of Present Illness Initial comments: Dictation was produced using [email or web address] dictation software. please excuse any grammatical, word or spelling errors. Chief Complaint: 60-year-old female presents to the emergency department for palpitations History of Present Illness: Hob-fcoa-ovh female past medical history diabetes she states she is here to emergency department today for evaluation of one week of palpitations. Patient states that states that she is here today because her symptoms have not gone away. She denies any history of cardiac disease. She has no chest pain. She has some very vague back pain towards the left inferior tip of the scapula. Stat worse with movement or deep inspiration. Patient denies any chest pain or shortness of breath. Patient otherwise has no complaints. States his palpitations haven't every once in a while she feels like her heart skips a beat. The ROS documented in this emergency department record has been reviewed and confirmed by me. Those systems with pertinent positive or negative responses have been documented in the HPI. All other systems are other negative and/or noncontributory. PHYSICAL EXAM: General Impression: Alert and oriented x3, not in acute distress HEENT: Normocephalic atraumatic, extra-ocular movements intact, pupils equal and reactive to light bilaterally, mucous membranes moist. Cardiovascular: Heart regular rate and rhythm Chest: Able to complete full sentences, no retractions, no tachypnea Abdomen: abdomen soft, non-tender, non-distended, no organomegaly Musculoskeletal: Pulses present and equal in all extremities, no peripheral edema Motor: no focal deficits noted Neurological: CN II-XII grossly intact, no focal motor or sensory deficits noted Skin: Intact with no visualized rashes Psych: Normal affect and mood ED course: 60-year-old well-appearing female presents to the emergency department for palpitations. Signs upon arrival are within acceptable limits. monitor worker shows frequent premature ventricular contractions. EKG shows sinus rhythm with PVCs Laboratory evaluation obtained. CBC, coag panel, metabolic panel is unremarkable. Cardiac enzymes negative. Patient observed in the emergency department for approximately 2 hours. shelter monitor was reviewed during her ER stay showing frequent premature ventricular contractions. Disposition options were discussed. Patient is agreeable for observation admission with consultation to cardiology. EKG interpretation: Ventricular rate 93, sinus rhythm, OH interval 150, QRS 11, QTc 380. No OH prolongation, no QTC prolongation, no ST or T-wave changes noted. EKG compared to 10/11/2020 showing no changes. Overall, this EKG is unremarkable - Related Data Home Medications Medication Instructions Recorded Confirmed Multivitamins, Thera [Multivitamin 1 tab PO DAILY 11/05/16 10/11/20 (formulary)] Biotin Ex Strength 1 tab PO DAILY 10/11/20 10/11/20 Cholecalciferol (Vitamin D3) 125 mcg PO DAILY 10/11/20 10/11/20 [Vitamin D3 (125 MCG = 5,000 IU)] Cider Vinegar [Apple Cider Vinegar] 300 mg PO DAILY 10/11/20 10/11/20 Jonatan [place] 1 tab PO DAILY 10/11/20 10/11/20 Oioditbbz-Lqefppzew-Mtcqxbqbjs 1 tab PO HS 10/11/20 10/11/20 Super Vitamin C 1 tab PO DAILY 10/11/20 10/11/20 Ultra [place] 3 1 tab PO DAILY 10/11/20 10/11/20 Zinc 50 mg PO DAILY 10/11/20 10/11/20 Allergies Allergy/AdvReac Type Severity Reaction Status Date / Time amoxicillin Allergy Rash/Hives Verified 04/07/21 08:41 cefazolin [From Kefzol] Allergy Dyspnea Verified 04/07/21 08:41 Review of Systems ROS Statement: Those systems with pertinent positive or pertinent negative responses have been documented in the HPI. ROS Other: All systems not noted in ROS Statement are negative. Past Medical History Past Medical History: Asthma, Diabetes Mellitus History of Any Multi-Drug Resistant Organisms: None Reported Past Surgical History: Section, Cholecystectomy, Orthopedic Surgery Past Anesthesia/Blood Transfusion Reactions: No Reported Reaction Past Psychological History: No Psychological Hx Reported Smoking Status: Never smoker Past Alcohol Use History: None Reported Past Drug Use History: None Reported - Past Family History Mother Family Medical History: No Reported History General Exam Limitations: no limitations Course Vital Signs 04/07/21 04/07/21 04/07/21 08:38 08:52 09:05 Temperature 98.3 F Pulse Rate 95 97 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 ] Respiratory 18 18 Rate Blood Pressure 150/80 111/62 O2 Sat by Pulse 97 99 Oximetry Medical Decision Making - Lab Data Result diagrams: 04/07/21 09:05 04/07/21 09:05 Lab Results 04/07/21 04/07/21 04/07/21 Range/Units 09:05 09:05 09:05 WBC 6.1 (3.8-10.6) k/uL RBC 5.18 (3.80-5.40) m/uL Hgb 14.2 (11.4-16.0) gm/dL Hct 43.3 (34.0-46.0) % MCV 83.6 (80.0-100.0) fL MCH 27.4 (25.0-35.0) pg MCHC 32.8 (31.0-37.0) g/dL RDW 12.7 (11.5-15.5) % Plt Count 233 (150-450) k/uL MPV 8.7 Neutrophils % 72 % Lymphocytes % 17 % Monocytes % 6 % Eosinophils % 2 % Basophils % 1 % Neutrophils # 4.4 (1.3-7.7) k/uL Lymphocytes # 1.0 (1.0-4.8) k/uL Monocytes # 0.4 (0-1.0) k/uL Eosinophils # 0.1 (0-0.7) k/uL Basophils # 0.1 (0-0.2) k/uL PT 10.4 (9.0-12.0) sec INR 1.0 (<1.2) APTT 25.6 (22.0-30.0) sec Sodium 136 L (137-145) mmol/L Potassium 4.4 (3.5-5.1) mmol/L Chloride 105 (98-107) mmol/L Carbon Dioxide 21 L (22-30) mmol/L Anion Gap 10 mmol/L BUN 14 (7-17) mg/dL Creatinine 0.58 (0.52-1.04) mg/dL Est GFR (CKD-EPI)AfAm >90 (>60 ml/min/1.73 sqM) Est GFR (CKD-EPI)NonAf >90 (>60 ml/min/1.73 sqM) Glucose 115 H (74-99) mg/dL Calcium 9.8 (8.4-10.2) mg/dL Magnesium 1.9 (1.6-2.3) mg/dL Total Bilirubin 0.9 (0.2-1.3) mg/dL AST 31 (14-36) U/L ALT 29 (4-34) U/L Alkaline Phosphatase 64 (38-126) U/L Troponin I (0.000-0.034) ng/mL Total Protein 7.6 (6.3-8.2) g/dL Albumin 4.6 (3.5-5.0) g/dL 04/07/21 Range/Units 09:05 WBC (3.8-10.6) k/uL RBC (3.80-5.40) m/uL Hgb (11.4-16.0) gm/dL Hct (34.0-46.0) % MCV (80.0-100.0) fL MCH (25.0-35.0) pg MCHC (31.0-37.0) g/dL RDW (11.5-15.5) % Plt Count (150-450) k/uL MPV Neutrophils % % Lymphocytes % % Monocytes % % Eosinophils % % Basophils % % Neutrophils # (1.3-7.7) k/uL Lymphocytes # (1.0-4.8) k/uL Monocytes # (0-1.0) k/uL Eosinophils # (0-0.7) k/uL Basophils # (0-0.2) k/uL PT (9.0-12.0) sec INR (<1.2) APTT (22.0-30.0) sec Sodium (137-145) mmol/L Potassium (3.5-5.1) mmol/L Chloride (98-107) mmol/L Carbon Dioxide (22-30) mmol/L Anion Gap mmol/L BUN (7-17) mg/dL Creatinine (0.52-1.04) mg/dL Est GFR (CKD-EPI)AfAm (>60 ml/min/1.73 sqM) Est GFR (CKD-EPI)NonAf (>60 ml/min/1.73 sqM) Glucose (74-99) mg/dL Calcium (8.4-10.2) mg/dL Magnesium (1.6-2.3) mg/dL Total Bilirubin (0.2-1.3) mg/dL AST (14-36) U/L ALT (4-34) U/L Alkaline Phosphatase (38-126) U/L Troponin I <0.012 (0.000-0.034) ng/mL Total Protein (6.3-8.2) g/dL Albumin (3.5-5.0) g/dL Disposition Clinical Impression: Palpitations Disposition: ADMITTED IP TO THIS HOSP Condition: Fair Referrals: Surjit Henning MD [Primary Care Provider] - 1-2 days
[2021-04-07 09:22] LABS: Basophils # (A) 0.1 k/uL (0-0.2); Basophils % (A) 1 %; Eosinophils # (A) 0.1 k/uL (0-0.7); Eosinophils % (A) 2 %; HCT 43.3 % (34.0-46.0); HGB 14.2 gm/dL (11.4-16.0); Lymphocytes % (A) 17 %; MCH 27.4 pg (25.0-35.0); MCHC 32.8 g/dL (31.0-37.0); MCV 83.6 fL (80.0-100.0); Mean Platelet Volume 8.7; Monocytes # (A) 0.4 k/uL (0-1.0); Monocytes % (A) 6 %; Neutrophils # (A) 4.4 k/uL (1.3-7.7); Neutrophils % (A) 72 %; Platelet Count 233 k/uL (150-450); RBC 5.18 m/uL (3.80-5.40); RDW 12.7 % (11.5-15.5); WBC 6.1 k/uL (3.8-10.6)
[2021-04-07 09:31] LABS: Partial Thromboplastin Time 25.6 sec (22.0-30.0); Prothrombin Time 10.4 sec (9.0-12.0)
[2021-04-07 09:36] LABS: ALT 29 U/L (4-34); AST 31 U/L (14-36); African American GFR (CKD) >90 (>60 ml/min/1.73 sqM); Albumin 4.6 g/dL (3.5-5.0); Alkaline Phosphatase 64 U/L (38-126); Anion Gap 10 mmol/L; Blood Urea Nitrogen 14 mg/dL (7-17); Calcium 9.8 mg/dL (8.4-10.2); Carbon Dioxide 21 mmol/L (22-30); Chloride 105 mmol/L (98-107); Glucose 115 mg/dL (74-99); Magnesium 1.9 mg/dL (1.6-2.3); Non-African American GFR(CKD) >90 (>60 ml/min/1.73 sqM); Potassium 4.4 mmol/L (3.5-5.1); Sodium 136 mmol/L (137-145); Total Bilirubin 0.9 mg/dL (0.2-1.3); Total Protein 7.6 g/dL (6.3-8.2)
--- NOTE | 2021-04-07 09:46 | XR ---
EXAMINATION TYPE: XR chest 1V portable DATE OF EXAM: 04/07/2021 COMPARISON: 10/11/2020 HISTORY: Heart palpitations TECHNIQUE: Single frontal view of the chest is obtained. FINDINGS: There is no focal air space opacity, pleural effusion, or pneumothorax seen. The cardiac silhouette size is within normal limits. The osseous structures are intact. Hyperinflation suggests COPD. Arthropathy of the shoulders. IMPRESSION: No acute process.
[2021-04-07] MEDS ORDERED: NALOXONE 0.4 MG/ML 1 ML VIAL IV PRN (10:21)
[2021-04-07] MEDS ORDERED: SODIUM CHLORIDE 0.9% 1,000 ML IV SCH (10:30)
[2021-04-07] MEDS ORDERED: METOPROLOL TARTRATE 12.5 MG TAB PO STA ×2 (10:30→12:41)
--- NOTE | 2021-04-07 13:17 | P.CRDCN ---
History of Present Illness History of present illness: HISTORY OF PRESENTING ILLNESS This is a pleasant 60-year-old female past medical history significant for type 2 diabetes, asthma, atrial fibrillation status post ablation 20+ years ago. She currently does not follow with a security guard. We have been asked to see in consultation for palpitations. Patient presents emergency department for 1 week of palpitations. She states that they come and go and sometimes feels the palpitations for over an hour. She denies any chest discomfort, shortness of breath, lightheadedness, dizziness, syncope or near syncope. She denies any symptoms of cough, fever, chills, abdominal pain, nausea, vomiting. She denies any history of coronary artery disease, [place], stroke, dyslipidemia. She denies any alcohol, tobacco or illicit drug use. She does take supplements. DIAGNOSTICS EKG reveals sinus rhythm, heart rate 93, occasional PVC, no significant ST or T- wave abnormalities. Telemetry tracings indicate sinus mechanism with occasional PVCs Chest xray no acute cardiopulmonary process. Laboratory reviewed, CBC unremarkable, sodium 136, potassium 4.4, BUN 14, serum creatinine 0.5, troponin negative, COVID-19 negative, magnesium 1.9 Current home medications include iron, vitamin D3, zinc, cinnamon bark, Apple cidar vinegar, Biotin, metformin, multivitamin, milk thistle, Bergamot extract , hawthorn extract, vitamin C, Semaglutide, magnesium, ultra omega 3 REVIEW OF SYSTEMS At the time of my exam: CONSTITUTIONAL: Denies fever or chills. CARDIOVASCULAR: Denies chest pain, shortness of breath, orthopnea, PND. Reports palpitations. RESPIRATORY: Denies cough. GASTROINTESTINAL: Denies abdominal pain, diarrhea, constipation, nausea or vomiting. MUSCULOSKELETAL: Denies myalgias. NEUROLOGIC: Denies numbness, tingling, headacbe or weakness. ENDOCRINE: Denies fatigue, weight change, polydipsia or polyurina. GENITOURINARY: Denies burning, hematuria or urgency with micturation. HEMATOLOGIC: Denies history of anemia or bleeding. PHYSICAL EXAMINATION Blood pressure 123/87, heart rate 81, afebrile, oxygen saturations 90% on room air CONSTITUTIONAL: No apparent distress. HEENT: Head is normocephalic. Pupils are equal, round. Sclerae anicteric. Mucous membranes of the mouth are moist. No JVD. No carotid bruit. CHEST EXAMINATION: Lungs are clear to auscultation. No chest wall tenderness is noted on palpation or with deep breathing. HEART EXAMINATION: Regular rate and rhythm. S1, S2 heard. No murmurs, gallops or rub. ABDOMEN: Soft, nontender. Positive bowel sounds. EXTREMITIES: 2+ peripheral pulses, no lower extremity edema and no calf tenderness. NEUROLOGIC EXAMINATION: Patient is awake, alert and oriented x3. ASSESSMENT Palpitations Premature Ventricular Complexes Type 2 diabetes History of Asthma History of Paroxysmal atrial fibrillation status post ablation 20+ years ago PLAN Obtain 2D echocardiogram and doppler study to assess cardiac structure and function. Check TSH Start metoprolol tartrate 25mg BID Obtain stress echo test tomorrow 04/08/2021 Further recommendations based on clinical course Nurse practitioner note has been reviewed by physician. Signing provider agrees with the documented findings, assessment, and plan of care. Past Medical History Past Medical History: Asthma, Diabetes Mellitus History of Any Multi-Drug Resistant Organisms: None Reported Past Surgical History: Section, Cholecystectomy, Orthopedic Surgery Past Anesthesia/Blood Transfusion Reactions: No Reported Reaction Past Psychological History: No Psychological Hx Reported Smoking Status: Never smoker Past Alcohol Use History: None Reported Past Drug Use History: None Reported - Past Family History Mother Family Medical History: No Reported History Medications and Allergies Home Medications Medication Instructions Recorded Confirmed Type Cider Vinegar [Apple Cider Vinegar] 450 mg PO BID 10/11/20 04/07/21 History Ultra [place] 3 1 tab PO DAILY 10/11/20 04/07/21 History Zinc 50 mg PO DAILY 10/11/20 04/07/21 History Ascorbic Acid [Vitamin C chew] 500 mg PO AC-BRKFST 04/07/21 04/07/21 History Bergamot Extract 500mg 2 tab PO DAILY 04/07/21 04/07/21 History Biotin 10,000 mcg PO DAILY 04/07/21 04/07/21 History Cholecalciferol [Vitamin D3 (25 50 mcg PO DAILY 04/07/21 04/07/21 History Mcg = 1000 Iu)] Cinnamon Bark 600mg 2 cap PO DAILY 04/07/21 04/07/21 History [place] Extract 600mg 1 tab PO AC-BRKFST 04/07/21 04/07/21 History Iron 18 mg PO TID 04/07/21 04/07/21 History Magnesium/Potassium/Asporotates/Bromclain 1 cap PO BID 04/07/21 04/07/21 History Milk Thistle 300 mg PO TID 04/07/21 04/07/21 History Multivit with Calcium,Iron,Min 1 tab PO DAILY 04/07/21 04/07/21 History [Women's Multivitamin] Semaglutide [Rybelsus] 7 mg PO AC-BRKFST 04/07/21 04/07/21 History Ultra Lipoic Alpha 500mg & R 1 tab PO AC-BRKFST 04/07/21 04/07/21 History Lipoic 100mg metFORMIN HCL [Glucophage] 1,000 mg PO BID-W/MEALS 04/07/21 04/07/21 History Allergies Allergy/AdvReac Type Severity Reaction Status Date / Time amoxicillin Allergy Rash/Hives Verified 04/07/21 11:14 cefazolin [From Kefzol] Allergy Dyspnea Verified 04/07/21 11:14 shellfish derived [Shellfish] Allergy Wheezing Verified 04/07/21 11:14 epinephrine AdvReac Increased Verified 04/07/21 11:14 Heart Rate Physical Exam Vitals: Vital Signs Temp Pulse Pulse Resp BP Pulse Ox 04/07/21 10:47 81 18 123/87 99 04/07/21 09:05 97 18 111/62 99 04/07/21 08:52 98 04/07/21 08:38 98.3 F 95 18 150/80 97 Intake and Output 04/06/21 04/07/21 04/07/21 22:59 06:59 14:59 Other: Weight 77.111 kg Results 04/07/21 09:05 04/07/21 09:05 Cardiac Enzymes 04/07/21 04/07/21 Range/Units 09:05 09:05 AST 31 (14-36) U/L Troponin I <0.012 (0.000-0.034) ng/mL Coagulation 04/07/21 Range/Units 09:05 PT 10.4 (9.0-12.0) sec APTT 25.6 (22.0-30.0) sec CBC 04/07/21 Range/Units 09:05 WBC 6.1 (3.8-10.6) k/uL RBC 5.18 (3.80-5.40) m/uL Hgb 14.2 (11.4-16.0) gm/dL Hct 43.3 (34.0-46.0) % Plt Count 233 (150-450) k/uL Comprehensive Metabolic Panel 04/07/21 Range/Units 09:05 Sodium 136 L (137-145) mmol/L Potassium 4.4 (3.5-5.1) mmol/L Chloride 105 (98-107) mmol/L Carbon Dioxide 21 L (22-30) mmol/L BUN 14 (7-17) mg/dL Creatinine 0.58 (0.52-1.04) mg/dL Glucose 115 H (74-99) mg/dL Calcium 9.8 (8.4-10.2) mg/dL AST 31 (14-36) U/L ALT 29 (4-34) U/L Alkaline Phosphatase 64 (38-126) U/L Total Protein 7.6 (6.3-8.2) g/dL Albumin 4.6 (3.5-5.0) g/dL Current Medications Generic Name Dose Route Start Last Admin Trade Name Freq PRN Reason Stop Dose Admin Sodium Chloride 1,000 mls @ 20 mls/hr 04/07/21 10:30 04/07/21 10:50 Saline 0.9% IV 20 mls/hr .Q24H ALMA Administration Naloxone HCl 0.2 mg 04/07/21 10:21 Naloxone 0.4 Mg/Ml 1 Ml Vial IV Q2M PRN Opioid Reversal Intake and Output 04/06/21 04/07/21 04/07/21 22:59 06:59 14:59 Other: Weight 77.111 kg Patient Weight 04/08/21 06:59 Weight 77.111 kg 04/07/21 09:05 04/07/21 09:05
--- NOTE | 2021-04-07 14:51 | P.HPIM ---
<Jesus Yoon - Last Filed: 04/07/21 14:37> History of Present Illness H&P Date: 04/07/21 History of Presenting Illness: Patient is a very pleasant 60-year-old female with a past medical history of par oxysmal atrial fibrillation status post ablation greater than 20 years ago, type II [id number] diabetes mellitus, hyperlipidemia, and asthma. She presented to the emergency department with the chief complaint of palpitations. Patient reports she has been experiencing these palpitations intermittently for the last week. Patient reports only other changes to daily activities/lifestyle was the starting of iron supplements and Bergamot Extract also one week ago in attempts to holistically lower her cholesterol levels. Patient reports she came to the emergency department today because palpitations were consistent 1 hour without any relief. In the emergency department patient was seen and fully evaluated. CBC and CMP were unremarkable. Troponin was normal findings at less than 0.012. Covid PCR was negative. Chest x-ray was negative for acute cardiopulmonary process. EKG revealing sinus rhythm and 93 bpm with frequent PVCs, no T-wave or ST abnormalities showing no signs of acute ischemia. Patient seen and evaluated at the bedside. She denies having any associated symptoms including headache, lightheadedness, dizziness, chest pain, shortness of breath, dyspnea with exertion, nausea, vomiting, or any other complaints. Patient denies daily caffeine and take or history of PVCs. Review of systems: Pertinent positives and negatives as discussed in HPI, a complete review of systems was performed and all other systems are negative. Physical exam: Vital signs reviewed and stable. General: Nontoxic, no distress and appears stated age. Derm: Skin warm and dry, normal coloration for ethnicity. Head: Atraumatic, normocephalic and symmetric. Eyes: EOMs intact, no lid lag, and anicteric sclera Mouth: no lip lesions, mucus membranes moist Cardiovascular: regular rate and rhythm with normal S1S2, no murmur, positive posterior tibial pulses bilaterally, and cap refill < 2 seconds. Lungs: Respirations even, regular, and unlabored on room air. Lungs CTA bi laterally, no rhonchi, no rales, no wheezing, and no accessory muscle usage. Abdominal: soft, nontender to palpation, no guarding, no appreciable organomegaly Ext: ROM intact. No gross muscle atrophy, no edema, no contractures Neuro: Speech clear, face symmetrical and CN II-XII grossly intact with no noted focal neuro deficits Psych: Alert and oriented to person, place, time, and situation. Appropriate and pleasant affect. Assessment and Plan of Care: Palpitations, EKG revealing frequent PVCs -Palpitations and frequent PVCs likely secondary to patient's consumption of new medication, Bergamot Extract, as this has been reported to cause "caffeine jitters". -Continuous telemetry monitoring -Cardiology consulted to evaluate and rule out other causes of frequent PVCs. -Echocardiogram to be completed. -Patient being admitted overnight to observation unit for continued monitoring and evaluation, likely discharge home tomorrow on Holter monitor pending further recommendations by cardiology. -Bergamot Extract held at this time and strongly urge patient to discontinue use. -TSH with free T4 -Lipid profile with a.m. labs Type II [id number] diabetes mellitus. -Hold Glucophage in place patient on glycemic protocol with NovoLog sliding scale. CODE STATUS: Full code DVT prophylaxis: Heparin Discussed with: Patient, RN, and patient's Anticipated discharge date: Likely tomorrow Anticipated discharge place: Home A total of 40 minutes was spent on the care of this complex patient more than 50% of the time was spent in counseling and care coordination. Past Medical History Past Medical History: Asthma, Diabetes Mellitus History of Any Multi-Drug Resistant Organisms: None Reported Past Surgical History: Section, Cholecystectomy, Orthopedic Surgery Additional Past Surgical History / Comment(s): x3, left total hip arthoplasty, knee surgery at 17 years old. Past Anesthesia/Blood Transfusion Reactions: No Reported Reaction Additional Past Anesthesia/Blood Transfusion Reaction / Comment(s): Got Tachy with anesthesia, Past Psychological History: No Psychological Hx Reported Smoking Status: Never smoker Past Alcohol Use History: None Reported Past Drug Use History: None Reported - Past Family History Mother Family Medical History: No Reported History Medications and Allergies Home Medications Medication Instructions Recorded Confirmed Type Cider Vinegar [Apple Cider Vinegar] 450 mg PO BID 10/11/20 04/07/21 History Ultra [place] 3 1 tab PO DAILY 10/11/20 04/07/21 History Zinc 50 mg PO DAILY 10/11/20 04/07/21 History Ascorbic Acid [Vitamin C chew] 500 mg PO AC-BRKFST 04/07/21 04/07/21 History Bergamot Extract 500mg 2 tab PO DAILY 04/07/21 04/07/21 History Biotin 10,000 mcg PO DAILY 04/07/21 04/07/21 History Cholecalciferol [Vitamin D3 (25 50 mcg PO DAILY 04/07/21 04/07/21 History Mcg = 1000 Iu)] Cinnamon Bark 600mg 2 cap PO DAILY 04/07/21 04/07/21 History [place] Aerial Extract 600mg 1 tab PO AC-BRKFST 04/07/21 04/07/21 History Iron 18 mg PO TID 04/07/21 04/07/21 History Magnesium/Potassium/Asporotates/Bromclain 1 cap PO BID 04/07/21 04/07/21 History Milk Thistle 300 mg PO TID 04/07/21 04/07/21 History Multivit with Calcium,Iron,Min 1 tab PO DAILY 04/07/21 04/07/21 History [Women's Multivitamin] Semaglutide [Rybelsus] 7 mg PO AC-BRKFST 04/07/21 04/07/21 History Ultra Lipoic Alpha 500mg & R 1 tab PO AC-BRKFST 04/07/21 04/07/21 History Lipoic 100mg metFORMIN HCL [Glucophage] 1,000 mg PO BID-W/MEALS 04/07/21 04/07/21 History Allergies Allergy/AdvReac Type Severity Reaction Status Date / Time amoxicillin Allergy Rash/Hives Verified 04/07/21 11:14 cefazolin [From Kefzol] Allergy Dyspnea Verified 04/07/21 11:14 shellfish derived [Shellfish] Allergy Wheezing Verified 04/07/21 11:14 epinephrine AdvReac Increased Verified 04/07/21 11:14 Heart Rate Physical Exam Vitals: Vital Signs Temp Pulse Pulse Resp BP Pulse Ox 04/07/21 10:47 81 18 123/87 99 04/07/21 09:05 97 18 111/62 99 04/07/21 08:52 98 04/07/21 08:38 98.3 F 95 18 150/80 97 Intake and Output 04/06/21 04/07/21 04/07/21 22:59 06:59 14:59 Other: Weight 77.111 kg Results CBC & Chem 7: 04/07/21 09:05 04/07/21 09:05 Labs: Abnormal Lab Results - Last 24 Hours (Table) 04/07/21 Range/Units 09:05 Sodium 136 L (137-145) mmol/L Carbon Dioxide 21 L (22-30) mmol/L Glucose 115 H (74-99) mg/dL <Esau Ramos - Last Filed: 04/07/21 16:35> History of Present Illness Patient seen and evaluated by me independently. Patient was also seen by NEW, the original author of this note. I am in agreement with the subjective, physical exam, and assessment and plan as documented with the addition/changes of my exam and assessment below. Gen: awake, alert HEENT: normocephalic, atraumatic, good hearing acuity, moist mucous membranes Resp: good air exchange, breathing comfortably with no accessory muscle use CVS: good distal perfusion x 4, GI: soft, NTTP, ND : no SPT, no CVAT, hanks catheter not present MSK: no pitting edema, no clubbing Neuro: non-focal, moving all extremities Psych: cooperative, euthymic mood Plan: Agree with plan above with no changes Physical Exam Osteopathic Statement: *. No significant issues noted on an osteopathic structural exam other than those noted in the History and Physical/Consult. Vitals: Vital Signs Temp Pulse Pulse Resp BP Pulse Ox 04/07/21 16:16 98.7 F 85 18 130/86 97 04/07/21 14:00 95 18 109/79 99 04/07/21 12:00 94 18 135/87 98 04/07/21 10:47 81 18 123/87 99 04/07/21 09:05 97 18 111/62 99 04/07/21 08:52 98 04/07/21 08:38 98.3 F 95 18 150/80 97 Intake and Output 04/07/21 04/07/21 04/07/21 06:59 14:59 22:59 Other: Weight 77.111 kg Results CBC & Chem 7: 04/07/21 09:05 04/07/21 09:05 Labs: Abnormal Lab Results - Last 24 Hours (Table) 04/07/21 Range/Units 09:05 Sodium 136 L (137-145) mmol/L Carbon Dioxide 21 L (22-30) mmol/L Glucose 115 H (74-99) mg/dL
[2021-04-07] MEDS: HEPARIN SODIUM,PORCINE/PF 5,000 UNIT/0.5 ML SYRINGE SQ SCH ×2 (16:16→21:14)
[2021-04-07 17:24] LABS: Glucose,Whole Blood 127 mg/dL (75-99)
[2021-04-07] MEDS: INSULIN ASPART (NovoLOG) 100 UNIT/ML VIAL SQ SCH ×2 (17:36→21:10)
[2021-04-07 20:23] LABS: Glucose,Whole Blood 126 mg/dL (75-99)
[2021-04-07] MEDS ORDERED: NON FORMULARY DRUG (Cider Vinegar [Apple Cider Vinegar] 300 MG Tablet) PO SCH (21:00)
[2021-04-07] MEDS: METOPROLOL TARTRATE 25 MG TAB PO SCH (21:13)
[2021-04-08 03:45] VITALS: RESP 16
[2021-04-08 07:07] LABS: Glucose,Whole Blood 102 mg/dL (75-99)
--- NOTE | 2021-04-08 07:13 | ECHOF ---
Referral Reason:palpitations MEASUREMENTS -------- HEIGHT: 152.4 cm WEIGHT: 77.1 kg BP: RVIDd: 2.9 cm (< 3.3) IVSd: 0.9 cm (0.6 - 1.1) LVIDd: 4.5 cm (3.9 - 5.3) LVPWd: 0.7 cm (0.6 - 1.1) IVSs: 1.3 cm LVIDs: 3.3 cm LVPWs: 1.0 cm LA Diam: 4.1 cm (2.7 - 3.8) LAESV Index (A-L): 36.84 ml/m Ao Diam: 3.0 cm (2.0 - 3.7) AV Cusp: 1.2 cm (1.5 - 2.6) LA Diam: 3.5 cm (2.7 - 3.8) MV EXCURSION: 21.518 mm (> 18.000) MV EF SLOPE: 69 mm/s (70 - 150) EPSS: 0.4 cm MV E Delfin: 0.57 m/s MV DecT: 267 ms MV A Delfin: 0.68 m/s MV E/A Ratio: 0.83 RAP: 5.00 mmHg RVSP: 22.84 mmHg FINDINGS -------- Sinus rhythm. This was a technically adequate study. LV size, wall thickness and systolic function are normal, with an EF greater than 55%. The left agustina tricular size is normal. The diastolic filling pattern is normal for the age of the patient 8.49. The right ventricle is normal in size. LA is moderately dilated 34-39 ml/m2 The right atrial size is normal. Aortic valve is trileaflet and is mildly thickened. There is mild aortic regurgitation. The mitral valve is normal. Mild mitral regurgitation is present. The tricuspid valve appears structurally normal. Mild tricuspid regurgitation present. Right vent ricular systolic pressure is normal at < 35 mmHg. There is no pulmonic regurgitation present. The aortic root size is normal. There is no pericardial effusion. CONCLUSIONS -------- 1. LV size, wall thickness and systolic function are normal, with an EF greater than 55%. 2. LA is moderately dilated 34-39 ml/m2 3. There is mild aortic regurgitation. 4. Mild mitral regurgitation is present. 5. Mild tricuspid regurgitation present. 6. There is no pericardial effusion. COVER STRIPPER: Bella Sexton RDCS
[2021-04-08 07:17] VITALS: BP 143/85; PULSE 73; TEMP 97.7
[2021-04-08] MEDS ORDERED: ASCORBIC ACID 500 MG TAB PO SCH (07:30)
[2021-04-08] MEDS ORDERED: ZINC SULFATE 220 MG CAP PO SCH (09:00)
[2021-04-08] MEDS ORDERED: FERROUS SULFATE 325 MG TAB PO SCH (09:00)
[2021-04-08] MEDS ORDERED: NON FORMULARY DRUG (Biotin [Biotin] 10,000 MCG Capsule) PO SCH (09:00)
[2021-04-08] MEDS ORDERED: CHOLECALCIFEROL 25 MCG (1000 IU) TABLET PO SCH (09:00)
--- NOTE | 2021-04-08 09:59 | P.PN ---
Subjective This is a pleasant 60-year-old female past medical history significant for type 2 diabetes, asthma, atrial fibrillation status post ablation 20+ years ago. She currently does not follow with a thumb sewer. We have been asked to see in consultation for palpitations. Patient presents emergency department for 1 week of palpitations. Patient seems in appetite, no acute distress. Overnight she slept well with no recurrence of palpitations. She denies any chest pain, shortness of breath, lightheadedness, dizziness. Plan for stress echo test to[place]in hutchins. EKG revealed sinus rhythm, heart rate 93, occasional PVC, no significant ST or T-wave abnormalities. Telemetry tracings indicate sinus mechanism with occasional PVCs which have improved since admission. Troponin negative. Echocardiogram revealed an EF of greater than 55%, no significant wall motion abnormalities. PHYSICAL EXAMINATION Vitals reviewed CONSTITUTIONAL: No apparent distress. HEENT: Neck Supple. No JVD. CHEST EXAMINATION: Lungs are clear to auscultation. No chest wall tenderness is noted on palpation or with deep breathing. HEART EXAMINATION: Regular rate and rhythm. S1, S2 heard. No murmurs, gallops or rub. ABDOMEN: Soft, nontender. Positive bowel sounds. EXTREMITIES: 2+ peripheral pulses, no lower extremity edema and no calf tenderness. NEUROLOGIC EXAMINATION: Patient is awake, alert and oriented x3. ASSESSMENT Palpitations Premature Ventricular Complexes Type 2 diabetes History of Asthma History of Paroxysmal atrial fibrillation status post ablation 20+ years ago PLAN Plan for stress echo today. Continue metoprolol tartrate 25mg BID If stress echocardiogram test is negative. Okay to discharge from cardiology perspective. Patient may follow-up in the office with Dr. James. Nurse practitioner note has been reviewed by physician. Signing provider agrees with the documented findings, assessment, and plan of care. Objective - Vital Signs Vital signs: Vital Signs Temp 97.7 F 04/08/21 07:16 Pulse 73 04/08/21 07:16 Resp 16 04/08/21 07:16 BP 143/85 04/08/21 07:16 Pulse Ox 96 04/08/21 07:16 Intake & Output 04/07/21 04/08/21 04/08/21 18:59 06:59 18:59 Weight 77.111 kg Other: Voiding Method Toilet # Voids 1 - Labs CBC & Chem 7: 04/07/21 09:05 04/07/21 09:05 Labs: Abnormal Lab Results - Last 24 Hours (Table) 04/07/21 04/07/21 04/08/21 Range/Units 17:22 20:21 07:05 POC Glucose (mg/dL) 127 H 126 H 102 H (75-99) mg/dL
[2021-04-08] MEDS: HEPARIN SODIUM,PORCINE/PF 5,000 UNIT/0.5 ML SYRINGE SQ SCH (10:16)
[2021-04-08] MEDS: INSULIN ASPART (NovoLOG) 100 UNIT/ML VIAL SQ SCH (10:17)
--- NOTE | 2021-04-08 10:30 | P.PN ---
Subjective Progress Note Date: 04/08/21 Hospital course: Patient is a Physical exam: Vital signs reviewed and stable. General: Nontoxic, no distress and appears stated age. Derm: Skin warm and dry, normal coloration for ethnicity. Head: Atraumatic, normocephalic and symmetric. Eyes: EOMs intact, no lid lag, and anicteric sclera Mouth: no lip lesions, mucus membranes moist Cardiovascular: regular rate and rhythm with normal S1S2, no murmur, positive posterior tibial pulses bilaterally, and cap refill < 2 seconds. Lungs: Respirations even, regular, and unlabored on room air. Lungs CTA bilaterally, no rhonchi, no rales, no wheezing, and no accessory muscle usage. Abdominal: soft, nontender to palpation, no guarding, no appreciable organomegaly Ext: ROM intact. No gross muscle atrophy, no edema, no contractures Neuro: Speech clear, face symmetrical and CN II-XII grossly intact with no noted focal neuro deficits Psych: Alert and oriented to person, place, time, and situation. Appropriate and pleasant affect. Assessment and Plan of Care: CODE STATUS:[] DVT prophylaxis: [] Discussed with: [] Anticipated discharge date: [] Anticipated discharge place: [] A total of [] minutes was spent on the care of this complex patient more than 50% of the time was spent in counseling and care coordination. Objective - Vital Signs Vital signs: Vital Signs Temp 97.7 F 04/08/21 07:16 Pulse 73 04/08/21 07:53 Resp 16 04/08/21 07:16 BP 143/85 04/08/21 07:16 Pulse Ox 96 04/08/21 07:16 Intake & Output 04/07/21 04/08/21 04/08/21 18:59 06:59 18:59 Weight 77.111 kg 77.11 kg Other: Voiding Method Toilet # Voids 1 - Labs CBC & Chem 7: 04/07/21 09:05 04/07/21 09:05 Labs: Abnormal Lab Results - Last 24 Hours (Table) 04/07/21 04/07/21 04/08/21 Range/Units 17:22 20:21 07:05 POC Glucose (mg/dL) 127 H 126 H 102 H (75-99) mg/dL
[2021-04-08] MEDS: METOPROLOL TARTRATE 25 MG TAB PO SCH (10:47)
[2021-04-08 11:46] LABS: Glucose,Whole Blood 144 mg/dL (75-99)
--- NOTE | 2021-04-08 13:08 | P.DS ---
<Jesus Yoon - Last Filed: 04/08/21 13:08> Providers Expected date of discharge: 04/08/21 Hospital Course: Discharge Diagnosis: Palpitations, EKG revealing frequent PVCs; discontinue Bergamot Extract and continue taking metoprolol 25 mg twice a day Type II [id number]-tiqeutdyx diabetes mellitus. Hospital Course: Patient is a very pleasant 60-year-old female with a past medical history of paroxysmal atrial fibrillation status post ablation greater than 20 years ago, type II [id number]-gpecugtqc diabetes mellitus, hyperlipidemia, and asthma. She presented to the emergency department with the chief complaint of palpitations. Patient reports she has been experiencing these palpitations intermittently for the last week. Patient reports only other changes to daily activities/lifestyle was the starting of iron supplements and Bergamot Extract also one week ago in attempts to holistically lower her cholesterol levels. Patient reports she came to the emergency department today because palpitations were consistent 1 hour without any relief. In the emergency department patient was seen and fully evaluated. CBC and CMP were unremarkable. Troponin was normal findings at less than 0.012. Covid PCR was negative. Chest x-ray was negative for acute cardiopulmonary process. EKG revealing sinus rhythm and 93 bpm with frequent PVCs, no T-wave or ST abnormalities showing no signs of acute ischemia. Patient was admitted to our services with consultation to cardiology. Patient was started on metoprolol 25 mg twice a day and underwent an echocardiogram which revealed an EF of greater than 55% with no significant valvular abnormalities. TSH normal findings at 2.00. Patient then underwent Lexiscan stress test which per cardiology with negative recommending patient follow-up outpatient in their office in 2 weeks. Patient is medically stable at this time and she reports palpitations with PVCs resolved overnight. She was strongly encouraged to discontinue Bergamot Extract and continue taking metoprolol 25 mg twice a day. Patient to follow-up with PCP in 1-2 days and cardiology in 2 weeks. Physical exam: Patient seen and fully evaluated at bedside this morning. She reports complete resolution of previously reported palpitations and denies any other complaints including headache, lightheadedness, dizziness, chest pain, shortness of breath, dyspnea with exertion, or experiencing any numbness/tingling/weakness/swelling in her extremities. Vital signs reviewed and stable. General: Nontoxic, no distress and appears stated age. Derm: Skin warm and dry, normal coloration for ethnicity. Head: Atraumatic, normocephalic and symmetric. Eyes: EOMs intact, no lid lag, and anicteric sclera Mouth: no lip lesions, mucus membranes moist Cardiovascular: regular rate and rhythm with normal S1S2, no murmur, positive posterior tibial pulses bilaterally, and cap refill < 2 seconds. Lungs: Respirations even, regular, and unlabored on room air. Lungs CTA bilaterally, no rhonchi, no rales, no wheezing, and no accessory muscle usage. Abdominal: soft, nontender to palpation, no guarding, no appreciable organomegaly Ext: ROM intact. No gross muscle atrophy, no edema, no contractures Neuro: Speech clear, face symmetrical and CN II-XII grossly intact with no noted focal neuro deficits Psych: Alert and oriented to person, place, time, and situation. Appropriate and pleasant affect. A total of 30 minutes of time were spent preparing this complex discharge summary. Patient Condition at Discharge: Stable Plan - Discharge Summary Discharge Rx Participant: Yes New Discharge Prescriptions: New Metoprolol Tartrate [Lopressor] 25 mg PO BID 30 Days #60 tab Continue Zinc 50 mg PO DAILY Ultra [place] 3 1 tab PO DAILY Cider Vinegar [Apple Cider Vinegar] 450 mg PO BID Cinnamon Bark 600mg 2 cap PO DAILY Biotin 10,000 mcg PO DAILY metFORMIN HCL [Glucophage] 1,000 mg PO BID-W/MEALS Multivit with Calcium,Iron,Min [Women's Multivitamin] 1 tab PO DAILY [place] Aerial Extract 600mg 1 tab PO AC-BRKFST Magnesium/Potassium/Asporotates/Bromclain 1 cap PO BID Iron 18 mg PO TID Cholecalciferol [Vitamin D3 (25 Mcg = 1000 Iu)] 50 mcg PO DAILY Milk Thistle 300 mg PO TID Ascorbic Acid [Vitamin C chew] 500 mg PO AC-BRKFST Ultra Lipoic Alpha 500mg & R Lipoic 100mg 1 tab PO AC-BRKFST Semaglutide [Rybelsus] 7 mg PO AC-BRKFST Discontinued Bergamot Extract 500mg 2 tab PO DAILY Discharge Medication List Cider Vinegar [Apple Cider Vinegar] 450 mg PO BID 10/11/20 [History] Ultra [place] 3 1 tab PO DAILY 10/11/20 [History] Zinc 50 mg PO DAILY 10/11/20 [History] Ascorbic Acid [Vitamin C chew] 500 mg PO AC-BRKFST 04/07/21 [History] Biotin 10,000 mcg PO DAILY 04/07/21 [History] Cholecalciferol [Vitamin D3 (25 Mcg = 1000 Iu)] 50 mcg PO DAILY 04/07/21 [History] Cinnamon Bark 600mg 2 cap PO DAILY 04/07/21 [History] [place] Aerial Extract 600mg 1 tab PO AC-BRKFST 04/07/21 [History] Iron 18 mg PO TID 04/07/21 [History] Magnesium/Potassium/Asporotates/Bromclain 1 cap PO BID 04/07/21 [History] Milk Thistle 300 mg PO TID 04/07/21 [History] Multivit with Calcium,Iron,Min [Women's Multivitamin] 1 tab PO DAILY 04/07/21 [History] Semaglutide [Rybelsus] 7 mg PO AC-BRKFST 04/07/21 [History] Ultra Lipoic Alpha 500mg & R Lipoic 100mg 1 tab PO AC-BRKFST 04/07/21 [History] metFORMIN HCL [Glucophage] 1,000 mg PO BID-W/MEALS 04/07/21 [History] Metoprolol Tartrate [Lopressor] 25 mg PO BID 30 Days #60 tab 04/08/21 [Rx] Follow up Appointment(s)/Referral(s): Figueroa James MD [STAFF PHYSICIAN] - 2 Weeks Surjit Henning MD [Primary Care Provider] - 1-2 days Activity/Diet/Wound Care/Special Instructions: Activity: As tolerated. Take breaks as needed. Diet: Heart healthy and carb consistent diet. Avoid salts, or foods with hidden salts such as canned or boxed foods and frozen dinners. Extra salt makes your heart work harder and traps the fluid in your body for longer. Special Instructions: Take all of your medications as directed and remember to keep all of your doctor's appointments and follow-up as needed. Thank you for allowing us to participate in your care, it was truly a pleasure having you for our patient!!! Discharge Disposition: HOME SELF-CARE <Esau Ramos - Last Filed: 04/09/21 16:25> Providers Date of admission: 04/07/21 10:21 Attending physician: Esau Ramos MD Consults: 04/07/21 10:20 Consult Physician Routine Consulting Provider: Figueroa James Consult Reason/Comments: palpitations, frequent PVCs Do you want consulting provider notified?: Yes Primary care physician: Surjit Manuel [facility] Course: I reviewed the documentation as provided by the NEW above, who is the original author of this note. I agree with the documented assessment and plan, with the following changes: None
--- NOTE | 2021-04-08 15:30 | ECHOS ---
STRESS ECHOCARDIOGRAM INDICATIONS: Heart Palpitations BASELINE HEART RATE: 88 BASELINE BLOOD PRESSURE: 120/68 MAXIMUM HEART RATE: 154 MAXIMUM BLOOD PRESSURE: 176/71 85% MPHR: 136 100% MPHR: 180 METS: 8.5 MAXIMUM STAGE REACHED: 3 TOTAL EXERCISE TIME: 7:05 CLINICAL INFORMATION: Baseline rhythm is sinus mechanism, rate of 88, normal axis and intervals, poor R-wave progression. Voltage criteria for left ventricular hypertrophy. Baseline blood pressure 120/68 mmHg. Patient exercised on Sanjiv protocol for 7 minutes 5 seconds, reaching a peak rate 154 beats per minute, which is equal to 96% of maximum predicted heart rate. Peak blood pressure 176/61 mmHg. Test was terminated secondary to fatigue. There was no chest pain. Electrocardiograph monitoring revealed no evidence of diagnostic ischemic ST deviation. Rare PVCs were noted. FINDINGS: Baseline echocardiogram revealed normal wall thickening and motion. At peak exercise there was normal wall motion augmentation with no hypokinesis or dyskinesis. CONCLUSION: 1. Average exercise tolerance with rare PVCs and normal electrocardiographic response to exercise. 2. Normal stress echocardiogram with no evidence of stress-induced ischemia. MMODL / IJN: [id number] /
== END 2021-04-08 13:46 | disposition home or self-care (01) ==
LOC: EC 08:35 → 6NMEDSUR 10:21
PROVIDERS: ADMIT Internal Medicine; ATTEND Internal Medicine
DX: R00.2 Palpitations (principal); I49.3 Ventricular premature depolarization; E11.9 Type 2 diabetes mellitus without complications; J45.909 Unspecified asthma, uncomplicated; I48.0 Paroxysmal atrial fibrillation; E78.5 Hyperlipidemia, unspecified; M54.9 Dorsalgia, unspecified; I08.3 Combined rheumatic disorders of mitral, aortic and tricuspid valves; Z20.822 Contact with and (suspected) exposure to COVID-19; Z53.29 Procedure and treatment not carried out because of patient's decision for other reasons; Z71.9 Counseling, unspecified; Z71.3 Dietary counseling and surveillance; Z79.84 Long term (current) use of oral hypoglycemic drugs; Z88.0 Allergy status to penicillin; Z88.1 Allergy status to other antibiotic agents; Z88.8 Allergy status to other drugs, medicaments and biological substances; Z91.013 Allergy to seafood; Z90.49 Acquired absence of other specified parts of digestive tract
CPT/HCPCS: 99285; 36415; 93005; 93306; 93351; 80053; 84443; 83735; 84484; 85025; 85610; 85730; 87635; 71045; G0378 ×2; Q9950